=== PATIENT | female | born 1945 | race Two or more races ===

== ENCOUNTER 2018-06-02 02:32 | Emergency (ER) | payer OTHER ==
[~2018-06-02] VITALS: Ht 157.5 cm; Wt 70.3 kg
[2018-06-02] MEDS ORDERED: TOPROL XL100 M1 (02:45)
[2018-06-02] MEDS ORDERED: AVAPRO300 MG (02:45)
[2018-06-02] MEDS ORDERED: LIPITOR20 MG (02:46)
== END 2018-06-02 11:52 | disposition home or self-care (01) ==
LOC: ER 02:32
DX: K57.32 Diverticulitis of large intestine without perforation or abscess without bleeding (principal)

== ENCOUNTER 2018-12-18 21:21 | Inpatient (IN) | payer OTHER ==
[~2018-12-18] VITALS: Ht 61 cm; Wt 5.0 kg
[~2018-12-18 21:21] MED LIST: AVAPRO300 MG; LIPITOR20 MG; TOPROL XL100 M1
[2018-12-18] MEDS ORDERED: HYDRALAZINE HCL25 MG (21:43)
[2018-12-22] MEDS ORDERED: CIPRO500 MG PO (06:33)
[2018-12-22] MEDS ORDERED: FLAGYL500MG PO (06:33)
== END 2018-12-22 12:26 | disposition home or self-care (01) | DRG 392 ==
LOC: ER 21:21 → MEDJ 12-19 08:28 → SEC-K 12-19 09:24 → MEDJ 12-19 10:55
PROVIDERS: ADMIT Student in an Organized Health Care Education/Training Program
DX: K57.32 Diverticulitis of large intestine without perforation or abscess without bleeding (principal); N20.0 Calculus of kidney; K57.30 Diverticulosis of large intestine without perforation or abscess without bleeding; R10.32 Left lower quadrant pain; I10 Essential (primary) hypertension; Z88.0 Allergy status to penicillin

== ENCOUNTER 2019-01-13 11:35 | Outpatient (CLI) | payer OTHER ==
[~2019-01-13 11:35] MED LIST changes: +CIPRO500 MG PO; +FLAGYL500MG PO; +HYDRALAZINE HCL25 MG
== END 2019-01-13 13:23 | disposition home or self-care (01) ==
LOC: LAB 11:35 → RAD 11:35 → LAB 13:23
DX: I10 Essential (primary) hypertension (principal); K57.32 Diverticulitis of large intestine without perforation or abscess without bleeding; R10.32 Left lower quadrant pain; D12.8 Benign neoplasm of rectum

== ENCOUNTER 2019-01-13 12:07 | Inpatient (IN) | payer OTHER ==
[~2019-01-13] VITALS: Ht 157.5 cm; Wt 67.6 kg
[2019-02-03] MEDS ORDERED: INTESTINEX680 M1 PO (11:05)
[2019-02-03] MEDS ORDERED: OMEPRAZOLE20 MG PO (11:05)
[2019-02-03] MEDS ORDERED: PERCOCET 5-3251 EACH PO (11:05)
== END 2019-02-03 11:20 | disposition home or self-care (01) | DRG 331 ==
LOC: SURG 01-25 09:15 → O/R 01-31 04:00 → SURG 01-31 09:15
PROVIDERS: ADMIT Surgery
PROC: 0DTN4ZZ Resection of Sigmoid Colon, Percutaneous Endoscopic Approach (ICD-10-PCS; principal; 2019-01-31 13:30)
DX: K57.32 Diverticulitis of large intestine without perforation or abscess without bleeding (principal); I11.9 Hypertensive heart disease without heart failure; E78.00 Pure hypercholesterolemia, unspecified; Z88.0 Allergy status to penicillin